=== PATIENT | female | born 1985 | race African-American/Black ===

== ENCOUNTER 2020-03-19 09:46 | Emergency (ER) | payer MEDICAID ==
[~2020-03-19] VITALS: Ht 160 cm; Wt 76.0 kg
[2020-03-19 10:33] LABS: BASOPHILS % 1.1 % (0.0-2.0); EOSINOPHILS % 1.5 % (0.0-5.0); HEMATOCRIT. 34.1 % (36.0-48.0); HEMOGLOBIN. 11.2 g/dL (12.0-16.0); LYMPHOCYTES % 21.6 % (20.0-50.0); MEAN CORPUSCULAR HEMOGLOBIN 27.8 pg (28.0-32.0); MEAN CORPUSCULAR VOLUME 84.9 fL (81.0-99.0); MEAN PLATELET VOLUME 8.4 fl (7.4-10.4); MONOCYTES % 8.8 % (2.0-8.0); PLATELET 369 x1000/uL (130-400); RED BLOOD CELL COUNT 4.01 mill/uL (4.2-5.4)
[2020-03-19 10:34] LABS: CHLORIDE 106 mEq/L (98-107)
[2020-03-19 10:55] LABS: CLARITY URINE CLOUDY (CLEAR); COLOR URINE YELLOW (YELLOW); KETONES URINE NEGATIVE (NEGATIVE); LEUKOCYTE ESTERASE URINE 1+ (NEGATIVE); NITRITE URINE NEGATIVE (NEGATIVE); OCCULT BLOOD URINE 2+ (NEGATIVE); PH URINE 7.5 (4.5-8.0); PROTEIN URINE NEGATIVE (NEGATIVE); SPECIFIC GRAVITY URINE 1.018 (1.005-1.030)
[2020-03-19 10:58] LABS: B-HCG QUANTITATIVE 21953 mIU/mL (<3)
[2020-03-19 13:05] VITALS: BP 126/82
== END 2020-03-19 13:21 | disposition home or self-care (01) ==
LOC: ER 09:46
DX: O20.0 Threatened abortion (principal); O23.42 Unspecified infection of urinary tract in pregnancy, second trimester; Z3A.19 19 weeks gestation of pregnancy; Z98.890 Other specified postprocedural states
CPT/HCPCS: 36415; 76805; 80053; 81003; 81025; 84702; 85025; 86850; 86900; 93005; 99285

== ENCOUNTER 2024-04-22 22:33 | Emergency (ER) | payer MEDICAID ==
[~2024-04-22] VITALS: Ht 160 cm; Wt 69.0 kg
[2024-04-22 23:04] VITALS: O2SAT 100
[2024-04-23 00:15] VITALS: TEMP 36.89184; O2SAT 100
[2024-04-23 00:26] LABS: CHLORIDE 110 mEq/L (98-107); POTASSIUM 4.4 mEq/L (3.5-5.1); SODIUM 139 mEq/L (136-145)
[2024-04-23 00:27] LABS: BASOPHILS % 0.6 % (0.0-2.0); CALCIUM 8.9 mg/dL (8.7-10.4); CARBON DIOXIDE 25 mEq/L (21-32); EOSINOPHILS % 1.6 % (0.0-5.0); HEMATOCRIT. 34.8 % (36.0-48.0); HEMOGLOBIN. 11.3 g/dL (12.0-16.0); MEAN CORPUSCULAR HEMOGLOBIN 27.3 pg (28.0-32.0); MEAN CORPUSCULAR HGB CONC 32.5 g/dL (31.0-37.0); MEAN CORPUSCULAR VOLUME 84.1 fL (81.0-99.0); MEAN PLATELET VOLUME 8.4 fl (7.4-10.4); MONOCYTES % 6.1 % (2.0-8.0); NEUTROPHILS % 76.7 % (40.0-76.0); PLATELET 390 x1000/uL (130-400); RED BLOOD CELL COUNT 4.14 mill/uL (4.2-5.4); RED CELL DISTRIBUTION WIDTH 15.3 % (11.6-14.6); WHITE BLOOD COUNT 7.8 x1000/uL (4.5-11.0)
[2024-04-23 00:32] LABS: CREATININE 0.9 mg/dL (0.6-1.0); GLUCOSE 104 mg/dL (70-105); UREA NITROGEN BLOOD 10 mg/dL (9-23)
[2024-04-23 00:45] LABS: B-HCG QUANTITATIVE < 1 mIU/mL (<3)
[2024-04-23 01:00] VITALS: BP 120/73; PULSE 70; RESP 20
[2024-04-23] MEDS: KETOROLAC 15MG/ML VIAL IM ONE (01:00)
[2024-04-23] MEDS ORDERED: NAPR-1176 MT (01:41)
[2024-04-23] MEDS ORDERED: LIDO700A15 TP (01:41)
== END 2024-04-23 01:15 | disposition home or self-care (01) ==
LOC: ER 22:33
DX: D36.7 Benign neoplasm of other specified sites (principal); N88.8 Other specified noninflammatory disorders of cervix uteri; J45.909 Unspecified asthma, uncomplicated
CPT/HCPCS: 36415; 99285; 80048; 84702; 85025; 76830; 76856; 96372; J1885; Z7610